=== PATIENT | male | born 1995 | race African-American/Black ===

== ENCOUNTER 2023-08-08 19:01 | Emergency (ER) | payer OTHER ==
--- NOTE | 2023-08-08 20:49 | ED Physician Documentation ---
History of Present Illness - Stated complaint Stated Complaint: COUGH/L FOOT PX - Chief complaint Chief Complaint: Ext Problem - History obtained from History obtained from: Patient - Additonal information Additional information: 28-year-old male presents with left foot pain. He states he did not sustain any injury but he and he noticedPain in the arch of the left foot after hiking a few days ago. It has been quite uncomfortable since then particularly when he walks. At rest it is tolerable. He has tried ibuprofen without relief. He states no known foot surgeries in the past that he had stitches when he was younger but he does not believe that he has had any foot surgeries though he is not entirely sure. He also is concerned about his seasonal allergies. Has had a cough has not reli eved by cetirizine or Flonase which she has been taking. He is wondering if there is anything else he can take for his allergies. He has no shortness of breath, fever or chills. Review of Systems Constitutional: reports: Reviewed and negative Eyes: reports: Reviewed and negative Ears: reports: Reviewed and negative Nose: reports: Reviewed and negative Throat: reports: Reviewed and negative Cardiac: reports: Reviewed and negative Respiratory: reports: Cough, Reviewed and negative GI: reports: Reviewed and negative : reports: Reviewed and negative Skin: reports: Reviewed and negative Musculoskeletal: reports: Extremity pain Neurologic: reports: Reviewed and negative Psychiatric: reports: Reviewed and negative Endocrine: reports: Reviewed and negative PD PAST MEDICAL HISTORY - Past Medical History Past Medical History: No Cardiovascular: None Respiratory: None Neuro: None Endocrine/Autoimmune: None GI: None : None HEENT: None Psych: None Musculoskeletal: None Derm: None - Past Surgical History Past Surgical History: No - Present Medications Home Medications: Ambulatory Orders Medication Instructions Recorded Confirmed Indomethacin [Indocin] 25 mg PO BIDWM #60 cap 08/08/23 - Allergies Allergies/Adverse Reactions: Allergies Allergy/AdvReac Type Severity Reaction Status Date / Time No Known Drug Allergies Allergy Verified 08/08/23 19:26 - Social History Does the pt smoke?: No Smoking Status: Never smoker Does the pt drink ETOH?: No ETOH Use: Wine, Beer, Liquor Does the pt have substance abuse?: No - Immunizations Immunizations are current?: Yes PD ED PE NORMAL - Vitals Vital signs reviewed: Yes - General General: Alert and oriented X 3, No acute distress, Well developed/nourished - HEENT HEENT: Atraumatic, Moist mucous membranes, Pharynx benign - Neck Neck: Supple, no meningeal sign, No JVD - Cardiac Cardiac: RRR, No murmur, No gallop, No rub - Respiratory Respiratory: No respiratory distress, Clear bilaterally - Abdomen Abdomen: Normal bowel sounds, Soft, Non tender, Non distended - Derm Derm: Normal color, Warm and dry, No rash - Extremities Extremities: Other (Patient has extremely flat feet bilaterally with some pain in the left arch with maybe trace swelling no erythema, no skin injuries. 2+ pedal pulses. Good range of motion of the foot.) Results - Vitals Vitals: Vital Signs - 24 hr 08/08/23 08/08/23 19:20 21:22 Temperature 36.4 C L Heart Rate 84 80 Respiratory 16 16 Rate Blood Pressure 145/87 H 133/81 H O2 Saturation 100 98 Oxygen O2 Source Room air - Rads (name of study) No standard instances Relevant Findings:: Final report received PD Medical Decision Making - ED course Complexity details: reviewed results, re-evaluated patient, considered differ ential ED course: 28-year-old male presented with left foot pain as described in HPI. He sustained no acute injury but had some increased pain will hiking recently. He denies any sudden increase in activity, states he is wearing good shoes, denies any injury to the area. On exam, he has focal tenderness of the left arch with mild swelling, no obvious deformity, but extremely flat feet noted bilaterally. No signs of infection. X-ray reveals some possible hardware or bone graft though the patient does not recall ever having this. In any case, this is likely pain from overuse and his pes planus, I have recommended that he use orthotic insoles and I will give him a course of Indocin to see if this helps. He was encouraged to establish primary care and follow-up with podiatry on outpatient basis. In regards to his allergy symptoms, patient offered various different medications of which she has tried and does not find them effective. He can also follow-up with PCP regarding this. He is in no acute distress with stable vital signs and stable for discharge home at this time.t Departure - Departure Disposition: 01 Home, Self Care Clinical Impression: Flat feet, bilateral, Left foot pain Condition: Good Instructions: Plantar Fasciitis Prescriptions: Indomethacin [Indocin] 25 mg PO BIDWM #60 cap Comments: Please establish a primary doctor on the send you will need a referral to a lead java j2ee developer for your severely flatfeet and I think this is also causing you Pain in your feet. It is not clear what the objects are on the x-ray so please discuss with your parents if you have any new prior surgeries and follow-up with the lead java j2ee developer such as a assembler rubber footwear. In the meantime, ice the feet, get good supportive insoles and I am prescribing a pain medication for you. For your allergy symptoms, you will need to continue the medicine you are prescribed, and follow-up with your primary doctor. Medication sent to [facility] pharmacy [place] Forms: PCP List Discharge Date/Time: 08/08/23 21:23
--- NOTE | 2023-08-08 20:57 | XRAY Report ---
PROCEDURE: Foot 3+V INDICATIONS: Trauma TECHNIQUE: 3 views of the foot were acquired. COMPARISON: None. FINDINGS: Bones: No acute fractures seen. Normal alignment. There are radiopaque densities noted over the media l cuneiform and anterior process of the calcaneus which may represent postsurgical changes of prior b one graft material. Minimal degenerative changes of the first metatarsophalangeal joint. Suspected mi ld pes planus on nonweightbearing views. Mild dorsal midfoot degenerative changes.. No suspicious [place] lesions. Soft tissues: No tibiotalar joint effusion. Achilles tendon appears normal. IMPRESSION: Left foot without acute osseous abnormalities. Possible postsurgical changes/bone graft material involving the medial cuneiform and anterior calcane us. Recommend correlation with prior surgical history. Suggestion of mild pes planus on these nonweightbearing views with mild dorsal midfoot degenerative c hanges and mild first metatarsophalangeal degenerative change. If there is continued clinical concern for pathology or occult fracture, consider follow-up imaging with repeat radiographs in 10-14 days and possible advanced imaging (CT, MRI, bone scan) if symptoms persist. Reviewed by: Latrell Malik MD on 08/08/2023 8:55 PM PDT Approved by: Latrell Malik MD on 08/08/2023 8:55 PM PDT Station ID: [id number]
[2023-08-08 21:27] VITALS: BP 133/81; O2SAT 98
== END 2023-08-08 21:23 | disposition home or self-care (01) ==
LOC: ED 19:01
DX: M21.42 Flat foot [pes planus] (acquired), left foot (principal); M21.41 Flat foot [pes planus] (acquired), right foot; J30.2 Other seasonal allergic rhinitis; R93.6 Abnormal findings on diagnostic imaging of limbs
CPT/HCPCS: 99283